=== PATIENT | female | born 1980 | race Caucasian/White ===

== ENCOUNTER → 2017-02-10 | Outpatient (CLI) | payer OTHER | END | disposition home or self-care (01) | LOC: GMAM 14:48 | PROVIDERS: ATTEND Family Medicine | DX: D64.89 Other specified anemias (principal) ==

== ENCOUNTER → 2017-02-10 | Outpatient (CLI) | payer OTHER ==
--- NOTE | 2017-02-12 05:47 | MRI ---
EXAM: MRI LUMBAR SPINE WITHOUT CONTRAST DATE: 02/10/2017 2:22 PM CDT . CLINICAL INDICATION: LUMBAR RADICULOPATHY. TECHNIQUE: Multiplanar, multisequence MRI lumbar spine without IV contrast COMPARISON: Unavailable FINDINGS: The lumbar vertebral bodies have normal height, shape, and alignment. There is no worrisome marrow signal abnormality. The conus terminates normally at L1-L2. The paravertebral soft tissues are within normal limits. Disc spaces, spinal canal, and neural foramina: T12-L1. Intervertebral disc height and signal are maintained. Posterior elements are normal. There is no stenosis. L1-L2. Intervertebral disc height and signal are maintained. Posterior elements are normal. There is no stenosis. L2-L3. Intervertebral disc height and signal are maintained. Posterior elements are normal. There is no stenosis. L3-L4. Intervertebral disc height and signal are maintained. Posterior elements are normal. There is no stenosis. L4-L5. Intervertebral disc height and signal are maintained. Posterior elements are normal. There is no stenosis. L5-S1. There is mild disc desiccation with a mild diffuse disc bulge. Posterior elements are normal. There is no stenosis. The visualized portions of the kidneys and abdominal aorta are unremarkable. IMPRESSION: No significant spinal canal stenosis or neural foraminal narrowing at any level. Mild disc desiccation with a mild diffuse disc bulge at L5-S1. Electronically signed by: Satinder Rivas MD 02/12/2017 5:45 AM CDT Workstation: [id number]
== END ==
LOC: MRI 14:13
PROVIDERS: ATTEND Family Medicine
DX: M54.16 Radiculopathy, lumbar region (principal); R00.2 Palpitations

== ENCOUNTER → 2017-03-17 | Outpatient (CLI) | payer OTHER | END | disposition home or self-care (01) | LOC: GMA 10:43 | PROVIDERS: ATTEND Nurse Practitioner Family | DX: D50.8 Other iron deficiency anemias (principal) ==

== ENCOUNTER → 2017-04-12 | Outpatient (CLI) | payer BC | LOC: RESP 17:00 | PROVIDERS: ATTEND Nuclear Medicine Nuclear Cardiology | DX: R00.2 Palpitations (principal) ==

== ENCOUNTER → 2017-05-05 | Outpatient (CLI) | payer BC | END | disposition home or self-care (01) | LOC: GMA 17:51 | PROVIDERS: ATTEND Nurse Practitioner Family | DX: D50.8 Other iron deficiency anemias (principal) ==

== ENCOUNTER → 2017-11-08 | Outpatient (CLI) | payer BC | LOC: GMAM 11:29 | PROVIDERS: ATTEND Family Medicine | DX: D50.8 Other iron deficiency anemias (principal) ==

== ENCOUNTER → 2018-03-24 | Outpatient (CLI) | payer BC ==
--- NOTE | 2018-03-24 11:28 | RAD ---
EXAM DESCRIPTION: Foot,Right 3 Views CLINICAL HISTORY: PAIN IN RIGHT FOOT COMPARISON: Radiographs of the right foot dated 03/07/2018. TECHNIQUE: AP, LATERAL, AND OBLIQUE FINDINGS: The visualized bones appear well mineralized. Transverse fracture of the midshaft of the proximal phalanx of the fifth toe is noted with associated soft tissue swelling. IMPRESSION: Transverse fracture of the midshaft of the proximal phalanx of the fifth toe is noted with associated soft tissue swelling. Electronically signed by: Tri Jain MD 03/24/2018 11:27 AM CDT
== END ==
LOC: RAD 08:32
PROVIDERS: ATTEND Orthopaedic Surgery
DX: S92.504A Nondisplaced unspecified fracture of right lesser toe(s), initial encounter for closed fracture (principal)

== ENCOUNTER → 2018-04-08 | Outpatient (CLI) | payer BC ==
--- NOTE | 2018-04-10 11:02 | RAD ---
EXAM: Foot,Right 3 Views CLINICAL HISTORY: CLOSED FX OF METATARAL BONE COMPARISON STUDY: March 24, 2018 right foot exam TECHNICAL: AP, lateral and oblique images of the right foot FINDINGS: The transverse fracture through the proximal shaft of the fifth proximal phalanx is again identified and not significantly changed. There is no bridging callus. There is no displacement or abnormal angulation. The remainder of the foot is stable. IMPRESSION: No significant change in the nondisplaced fracture of the fifth proximal phalanx. Electronically signed by: Bairon Bay MD 04/10/2018 11:01 AM CDT
== END ==
LOC: RAD 12:16
PROVIDERS: ATTEND Orthopaedic Surgery
DX: S92.354D Nondisplaced fracture of fifth metatarsal bone, right foot, subsequent encounter for fracture with routine healing (principal)

== ENCOUNTER → 2018-05-20 | Outpatient (CLI) | payer BC ==
--- NOTE | 2018-05-20 15:52 | RAD ---
EXAM DESCRIPTION: Foot,Right 3 Views CLINICAL HISTORY: 37 years, Female, CLOSED FX OF METATARSAL BONE, RIGHT COMPARISON: April 08, 2018 TECHNIQUE: AP, lateral, and oblique views of the right foot FINDINGS: Three views of the right foot demonstrate bridging callus but incomplete bony union of proximal fifth phalangeal fracture in essentially anatomic alignment. There is some endosteal sclerosis and there is some bridging callus formation. Area residual lucency at the fracture site is apparent. New fracture or deformity is not apparent. IMPRESSION: Incompletely healed fracture of the proximal fifth phalangeal in essentially anatomic alignment with some bridging callus formation and endosteal sclerosis. Electronically signed by: Jaskaran Oviedo MD 05/20/2018 3:51 PM CDT
== END ==
LOC: RAD 12:16
PROVIDERS: ATTEND Orthopaedic Surgery
DX: S92.354D Nondisplaced fracture of fifth metatarsal bone, right foot, subsequent encounter for fracture with routine healing (principal)

== ENCOUNTER → 2020-04-18 | Outpatient (CLI) | payer BC | LOC: GMAM 14:19 | PROVIDERS: ATTEND Family Medicine | DX: N30.00 Acute cystitis without hematuria (principal) ==

== ENCOUNTER → 2020-05-20 | Outpatient (CLI) | payer BC | LOC: LAB.NP 11:03 | PROVIDERS: ATTEND Family Medicine | DX: R00.2 Palpitations (principal) ==

== ENCOUNTER → 2020-07-24 | Outpatient (CLI) | payer BC | LOC: GMAM 10:58 | PROVIDERS: ATTEND Family Medicine | DX: E53.8 Deficiency of other specified B group vitamins (principal); E55.9 Vitamin D deficiency, unspecified ==

== ENCOUNTER → 2020-08-30 | Outpatient (CLI) | payer BC | LOC: YCFC.O 16:08 | PROVIDERS: ATTEND Nurse Practitioner | DX: Z20.828 Contact with and (suspected) exposure to other viral communicable diseases (principal) ==